=== PATIENT | male | born 1965 | race Caucasian/White ===

== ENCOUNTER 2017-08-05 11:38 | Emergency (ER) | payer BC ==
[2017-08-05 11:49] VITALS: BP 141/86
--- NOTE | 2017-08-05 12:04 | EDM.PDOC ---
<Darlene Ovalle - Last Filed: 08/05/17 16:01> ED HPI GENERAL MEDICAL PROBLEM - General Chief Complaint: Skin Complaint Stated Complaint: [id number] LEG PAIN VERICOS VEIN Time Seen by Provider: 08/05/17 11:50 Source of Information: Reports: Patient, RN, RN Notes Reviewed History Limitations: Reports: No Limitations - History of Present Illness INITIAL COMMENTS - FREE TEXT/NARRATIVE: Woodrow is a 52 yo male who presents to the ED today due to a lump and pain to his left inner thigh. He relates that he has had this pain since yesterday. Patient reports increased swelling to his leg. Pain is worse with movement. Denies fevers, chills, nausea, shortness of breath, chest pain or vomiting at home. Patient denies history of blood clots or skin infections. Denies recent travel. Patient has a significant history of varicose veins. Onset Date: 08/04/17 Location: Reports: Lower Extremity, Left Quality: Reports: Ache Severity: Moderate Improves with: Reports: None Worsens with: Reports: Movement Left Upper Leg Pain Score (Numeric/FACES): 3 - Related Data Allergies Allergy/AdvReac Type Severity Reaction Status Date / Time No Known Allergies Allergy Verified 08/05/17 11:51 Home Meds: Home Meds Tadalafil [Cialis] 20 mg PO ASDIRECTED PRN 10/14/15 [History] Past Medical History - Past Health History Medical/Surgical History: Denies Medical/Surgical History HEENT History: Reports: Impaired Vision Other HEENT History: wears glasses Cardiovascular History: Reports: None Respiratory History: Reports: None Gastrointestinal History: Reports: None Genitourinary History: Reports: Renal Calculus Musculoskeletal History: Reports: None Neurological History: Reports: None Psychiatric History: Reports: None Endocrine/Metabolic History: Reports: None Hematologic History: Reports: None Immunologic History: Reports: None Oncologic (Cancer) History: Reports: None Dermatologic History: Reports: None - Infectious Disease History Infectious Disease History: Reports: Chicken Pox, Measles, Mumps - Past Surgical History Head Surgeries/Procedures: Reports: None Social & Family History - Family History Family Medical History: Noncontributory - Tobacco Use Smoking Status *Q: Current Every Day Smoker Years of Tobacco use: 20 Packs/Tins Daily: 0.5 Second Hand Smoke Exposure: No - Recreational Drug Use Recreational Drug Use: No - Living Situation & Occupation Living situation: Reports: with Family Occupation: Employed ED ROS GENERAL - Review of Systems Review Of Systems: ROS reveals no pertinent complaints other than HPI. ED EXAM, SKIN/RASH Exam Limited By: No Limitations General Appearance: Alert, WD/WN, No Apparent Distress Eye Exam: Bilateral Eye: PERRL Ears: Normal External Exam, Normal Canal, Hearing Grossly Normal, Normal TMs Nose: Normal Inspection, Normal Mucosa, No Blood Throat/Mouth: Normal Inspection, Normal Lips, Normal Teeth, Normal Gums, Normal Oropharynx, Normal Voice, No Airway Compromise Head: Atraumatic, Normocephalic Neck: Normal Inspection, Supple, Non-Tender, Full Range of Motion Respiratory/Chest: No Respiratory Distress, Lungs Clear, Normal Breath Sounds, No Accessory Muscle Use, Chest Non-Tender Cardiovascular: Normal Peripheral Pulses, Regular Rate, Rhythm, No Edema, No Gallop, No JVD, No Murmur, No Rub Peripheral Pulses: 3+: Posterior Tibial (L), Posterior Tibial (R), Dorsalis Pedis (L), Dorsalis Pedis (R) GI/Abdominal: Normal Bowel Sounds, Soft, Non-Tender, No Organomegaly, No Distention, No Abnormal Bruit, No Mass (Male) Exam: Deferred Rectal (Males) Exam: Deferred Back Exam: Normal Inspection, Full Range of Motion Extremities: Normal Range of Motion, No Pedal Edema, Normal Capillary Refill, Leg Pain (Pain to left upper leg medial aspect of thigh. 4 inch induration noted. Area is red. Not warm to the touch. Patient denies numbness or tingling. Pedal pulses intact. Right leg no abnormalities noted. ) Neurological: Alert, Oriented, CN II-XII Intact, Normal Cognition, Normal Gait, Normal Reflexes, No Motor/Sensory Deficits Psychiatric: Normal Affect, Normal Mood Skin: Warm, Dry, Intact, Normal Color, No Rash Location, Skin: Lower Extremity, Left Characteristics: Erythematous, Other (Indurated area to left medial thigh. ) Associated features: Tenderness Lymphatic: No Adenopathy Course - Vital Signs Last Recorded V/S: Last Vital Signs Temp 37.0 C 08/05/17 11:45 Pulse 75 08/05/17 11:45 Resp 14 08/05/17 11:45 BP 141/86 H 08/05/17 11:45 Pulse Ox 98 08/05/17 11:45 - Orders/Labs/Meds Labs: Laboratory Tests 08/05/17 08/05/17 08/05/17 Range/Units 12:07 12:07 12:07 WBC 9.7 (5.0-10.0) 10^3/uL RBC 5.07 (4.6-6.2) 10^6/uL Hgb 15.5 (14.0-18.0) g/dL Hct 44.6 (40.0-54.0) % MCV 88.0 (80-100) fL MCH 30.6 (27.0-34.0) pg MCHC 34.8 (33.0-35.0) g/dL Plt Count 230 (150-450) 10^3/uL Neut % (Auto) 69.5 (42.2-75.2) % Lymph % (Auto) 20.3 L (20.5-50.1) % [place] % (Auto) 7.7 (2-8) % Eos % (Auto) 2.3 (1.0-3.0) % Baso % (Auto) 0.2 (0.0-1.0) % D-Dimer, Quantitative 142 (0-400) ng/mL Sodium 138 (135-145) mmol/L Potassium 3.9 (3.6-5.0) mmol/L Chloride 103 (101-111) mmol/L Carbon Dioxide 28.0 (21.0-31.0) mmol/L Anion Gap 10.9 BUN 14 (7-18) mg/dL Creatinine 0.9 (0.6-1.3) mg/dL Est Cr Clr Drug Dosing 111.63 mL/min Estimated GFR (MDRD) > 60 BUN/Creatinine Ratio 15.55 Glucose 123 H (74-105) mg/dL Calcium 9.0 (8.4-10.2) mg/dl Total Bilirubin 0.5 (0.2-1.0) mg/dL AST 24 (10-42) IU/L ALT 25 (10-60) IU/L Alkaline Phosphatase 31 L (42-121) IU/L Total Protein 7.2 (6.7-8.2) g/dl Albumin 4.2 (3.2-5.5) g/dl Globulin 3.0 Albumin/Globulin Ratio 1.40 Departure - Departure Time of Disposition: 15:57 Disposition: Home, Self-Care 01 Condition: Good Clinical Impression: Lump - Discharge Information Referrals: PCP,None [Primary Care Provider] - Forms: ED Department Discharge Care Plan Goals: Patient case evaluated per surgeon, Dr King, while in the ED.Patient to arrive at 6:30am on 08/06/17 for surgery tomorrow to remove lump to left leg. Follow instructions discussed with surgeon. Patient verbalizes understanding. Denies any further questions or concerns at this time. Assessment, testing and plan were reviewed and I agree with the treatment. <Phan Hobson - Last Filed: 08/05/17 19:18> ED EXAM, SKIN/RASH Exam: See Below
[2017-08-05 12:32] LABS: CHLORIDE,CL 103 mmol/L (101-111); SODIUM,NA 138 mmol/L (135-145)
--- NOTE | 2017-08-05 13:44 | US ---
Clinical history: 52-year-old male emergency department with focal medial left thigh redness, pain an d swelling. No known trauma or foreign body this "smoker". Interpretation: Abnormal. 1. *Discrete 2.4 cm x 1.6 cm well-defined echogenic, complex mass lesion, left thigh medially, that c orresponds with clinical "lump". This lesion is well-defined by peripheral blood flow but there is mi nimal blood flow centrally (without obvious necrosis or cavitation). Abscess/carbuncle versus foreign body granuloma? Unusual neoplasm (melanoma) and inflamed lymph node possible. 2. No Lewis's cyst. 3. No sign of deep vein thrombosis this left lower extremity i.e no sign of intraluminal thrombus and normal compressibility deep veins of the left groin, thigh, knee and possible catheter. Satisfactory augmentation and venous waveforms demonstrated respectively in the posterior tibial vein of the left calf, popliteal vein behind the left knee and proximally in the femoral veins of the left lower extr emity. CONCLUSION: *Focal subcutaneous abnormality (see above) medial aspect left thigh. No current signs of deep vein thrombosis left lower extremity.
--- NOTE | 2017-08-05 16:30 | HP ---
INTRODUCTION: This 52-year-old male presented to the emergency room with complaints of painful swelling in the medial part of the left thigh. Emergency room physician got an ultrasound that shows a complex subcutaneous mass that does not seem to be related to a blood vessel or a typical infection. He asked for Surgery consult. I came from the Surgery [facility] to the emergency room. Evaluation of this shows erythematous and tender area, most likely is a subcutaneous infection and would consider this to be a foreign body inciting infection. This is in the wrong place to be lymph nodes, and it does not seem to be associated with ultrasound or anything vascular. The patient states he has had this over the last several days and has become larger. PAST MEDICAL HISTORY: ALLERGIES: The patient has no allergies. CURRENT MEDICATIONS: Flomax. PAST SURGICAL HISTORY: None. FAMILY HISTORY AND SOCIAL HISTORY: The patient lives here in [place]. He does smoke. 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 REVIEW OF SYSTEMS: Only positive for kidney stones. Otherwise, cardiovascular is negative for chest pain or shortness of breath. PHYSICAL EXAMINATION: HEENT: Normal. Chest: The lungs are clear. Heart: Normal sinus rhythm. Abdomen: Soft, nontender. Extremities: Left leg shows a 3 to 4 cm tender mass in the medial portion of the mid thigh. Good distal pulses. Range of motion in the extremity is normal. Neurologic: Intact. ASSESSMENT: Complex cystic/possible infection of the medial thigh. PLAN: I discussed the risks, benefits, and expected outcomes of incision and drainage versus observation, antibiotics we will work for this. He has opted to have this evacuated and we plan on doing this in the operating room tomorrow morning. He will be n.p.o. after midnight. Alternatives were discussed with him. I think this is going to fit him best. [facility] /[id number]
== END 2017-08-05 16:09 | disposition home or self-care (01) ==
LOC: DL.ED 11:38
DX: R22.32 Localized swelling, mass and lump, left upper limb (principal); F17.210 Nicotine dependence, cigarettes, uncomplicated
CPT/HCPCS: 36415; 80053; 85025; 85379; 93971; 99284

== ENCOUNTER 2017-08-06 06:34 | Day surgery (SDC) | payer BC ==
[2017-08-06] MEDS ORDERED: Midazolam 1 MG/ML 2 ML SDV IV ONE (06:35)
[2017-08-06] MEDS ORDERED: Ketorolac 30 MG/ML SDV IVPUSH ONE (06:35)
[2017-08-06] MEDS ORDERED: Ondansetron 4 MG/2 ML SDV IV ONE (06:35)
[2017-08-06] MEDS ORDERED: Lidocaine 2% 20 ML MDV INJECT ONE (06:35)
[2017-08-06] MEDS ORDERED: Dexamethasone 4 MG/ML SDV IV ONE (06:35)
[2017-08-06] MEDS ORDERED: Propofol 200 MG/20 ML SDV IV ONE (06:35)
[2017-08-06] MEDS ORDERED: fentaNYL 100 MCG/2 ML SDV IV ONE (06:35)
[2017-08-06] MEDS: Lactated Ringers 1,000 ML IV SCH (06:57)
[2017-08-06] MEDS ORDERED: Lidocaine 1% 30 ML SDV ONE (07:49)
[2017-08-06] MEDS ORDERED: Lidocaine 1% 30 ML SDV INJECT ONE (08:11)
[2017-08-06] MEDS: Lidocaine 1% 30 ML SDV INJECT ONE (08:37)
--- NOTE | 2017-08-06 09:52 | OR ---
DATE: 08/06/2017 PREOPERATIVE DIAGNOSIS: Left leg mid thigh lesion. POSTOPERATIVE DIAGNOSIS: Ruptured greater saphenous vein. PROCEDURE: Incision and drainage of mid left thigh hematoma with ligation of greater saphenous vein. ANESTHESIA: Local plus MAC. SPECIMEN: None. INDICATION FOR PROCEDURE: This 52-year-old male has a large 3 to 4 cm tender erythematous mass in the mid thigh. This is on the medial side. CT scan shows it to be a complex loculated lesion with multiple differential diagnosis. OPERATIVE FINDINGS: Ruptured saphenous vein. ESTIMATED BLOOD LOSS: 500 mL. PROCEDURE IN DETAIL: After adequate preparation, local anesthesia was used to infiltrate an area over this erythematous mass. An incision was made and carried down through the subcutaneous tissue to enter a large hematoma, in the range of 50 to 100 mL was evacuated. This, however, opened up a ruptured saphenous vein. This was quite difficult to control. The incision needed to be extended both proximally and distally to be able to find an area to be able to get control of this bleeding. An 0 Vicryl suture was used in a [id number] fashion to suture ligate both proximally and distally the greater saphenous vein. This seemed adequately to arrest bleeding. A 3-0 Vicryl was used to close the subcuticular layer and 3-0 Monoc[address] for the skin. [facility] /[id number]
[2017-08-06 13:06] VITALS: BP 111/72
== END 2017-08-06 10:20 | disposition home or self-care (01) ==
LOC: DL.SDS 06:34
PROVIDERS: ATTEND Surgery
DX: I87.8 Other specified disorders of veins (principal)
CPT/HCPCS: 10140; 37799; J1100; J1885; J2250; J2405; J2704; J3010; J7120

== ENCOUNTER 2018-09-09 06:57 | Day surgery (SDC) | payer BC ==
[~2018-09-09 06:57] MED LIST: Dextrose 5%-0.45% NaCl 1,000 ML IV SCH; Midazolam 1 MG/ML 2 ML SDV ONE; Sodium Chloride 0.9% 10 ML Syringe FLUSH PRN; fentaNYL 100 MCG/2 ML SDV ONE
[2018-09-09] MEDS ORDERED: Midazolam 1 MG/ML 2 ML SDV IV ONE ×7 (06:58→08:11)
[2018-09-09] MEDS ORDERED: fentaNYL 100 MCG/2 ML SDV IV ONE ×5 (06:58→08:14)
--- NOTE | 2018-09-09 11:39 | OR ---
DATE: 09/09/2018 PROCEDURE: Total colonoscopy and multiple cold snare polypectomies. INSTRUMENT USED: CF-HV280G Olympus video colonoscope. PREMEDICATIONS: Fentanyl 150 mcg intravenous, Versed 4 mg intravenous. The procedure was done under pulse oximetry, BP recording, and compliance monitor. INDICATION: Screening colonoscopic examination is done for detection of any polypoid lesions and removal, endoscopic hemostasis therapy if needed. DESCRIPTION OF PROCEDURE: Initial rectal exam was unremarkable. Rigid anoscopy showed moderate-sized internal hemorrhoids without bleeding from them the colonoscope was passed with ease. Numerous scattered diverticula were noted in the distal left colon along with deformity. In the distal descending colon, 2 polyps were noted, 3 mm sized and 5 mm sized, photograph was taken of the larger polyp, cold snare polypectomies were done. The tissues were retrieved and sent for histopathology. In the mid descending colon, another 5-mm sized benign- appearing polyp was noted. Cold snare polypectomy was done, the tissue was retrieved and sent for histopathology. The scope was passed with ease up to the ileocecal area. Photographs were taken of normal appearing cecum, identified by double-bulged ileocecal folds. No bleeding was noted from any of the visualized areas at the commencement of the examination. Bowel preparations found to be inadequate, [place] scale of 2. No stricture. No vascular ectasia. No large isolated ulceration seen. No evidence of diffuse inflammatory bowel disease in the form of friability, contact bleeding, or ulcerations. Probing the proximal sides of folds and flexures, using adequate distention and clearing up the scope material, withdrawal of the scope was made, cecum to rectum time over 6 minutes. No bleeding was noted from any of the visualized areas at the completion of examination. IMPRESSION: 1. Internal hemorrhoids. 2. Diverticulosis. 3. Multiple colonic polyps. The patient tolerated the procedure well. [facility] /[id number]
[2018-09-09 12:09] VITALS: BP 102/50
== END 2018-09-09 09:52 | disposition home or self-care (01) ==
LOC: DL.ENDO 06:57
PROVIDERS: ATTEND Internal Medicine Gastroenterology
DX: Z12.11 Encounter for screening for malignant neoplasm of colon (principal); K64.8 Other hemorrhoids; K57.30 Diverticulosis of large intestine without perforation or abscess without bleeding; D12.4 Benign neoplasm of descending colon; K63.5 Polyp of colon; F17.210 Nicotine dependence, cigarettes, uncomplicated; E66.09 Other obesity due to excess calories; Z68.32 Body mass index [BMI] 32.0-32.9, adult
CPT/HCPCS: 45385; J2250; J3010; J7042